=== PATIENT | female | born 1990 | race Two or more races ===

== ENCOUNTER 2024-10-26 13:38 | Emergency (ER) | payer MEDICAID, OTHER ==
[~2024-10-26] VITALS: Ht 172.7 cm; Wt 104.5 kg
[2024-10-26 14:34] VITALS: BP 193/90; PULSE 99; RESP 18; TEMP 99.6; O2SAT 99
[2024-10-26] MEDS: SODIUM CHLORIDE 0.9% 1,000 ML IV ONE (15:09)
[2024-10-26] MEDS: diphenhdrAMINE HCL 50 MG/1 ML VL IV ONE (15:16)
[2024-10-26] MEDS: KETOROLAC TROMETH 30 MG/ML 1ML VIAL IV ONE (15:16)
[2024-10-26] MEDS: PROCHLORPERAZINE EDISYLATE 5 MG/ML 2ML VIAL IV ONE (15:16)
[2024-10-26] MEDS ORDERED: MAGN400T40 PO (16:23)
[2024-10-26] MEDS ORDERED: RIBO400T OR (16:23)
--- NOTE | 2024-10-26 16:23 | ED.PDOC ---
HPI (NEURO) HPI Comments This is a pleasant 34-year-old with hx of Migraines since childhood who presents for atraumatic right temporal headache associated with nausea and photophobia x 3 days Able to get minimal relief with [id number] Tylenol Motrin The headache is currently rated moderate to severe Denies fever, chills, night sweats Denies persistent nausea Denies vomiting Denies thunderclap headache Denies photophobia, phonophobia Denies head trauma around the time headache started Denies family history of brain issues persistent headaches Denies taking any blood thinner medication Denies vision/hearing changes Denies focal loss of strength/sensation or changes in speech LMP: Current Chief Complaint: Headache Time Seen by MD: 14:12 Mode of Arrival: Ambulatory All Other Systems: Reviewed and Negative (Per HPI) Physical Exam General Appearance: No Apparent Distress, Normal HEENT: Normal ENT Inspection, Pharynx Normal, TMs Normal Neck: Full Range of Motion, Non-Tender, Normal, Normal Inspection Respiratory: Chest Non-Tender, Lungs Clear, No Accessory Muscle Use, No Respiratory Distress, Normal Breath Sounds Cardiovascular: No Edema, No JVD, No Murmur, No Gallop, Regular Rate/Rhythm Breast Exam: Deferred Gastrointestinal: No Organomegaly, Non Tender, No Pulsatile Mass, Normal Bowel Sounds, Soft Genitalia: Deferred Pelvic: Deferred Rectal: Deferred Extremities: No calf tenderness, Normal capillary refill, Normal inspection, Normal range of motion, Non-tender, No pedal edema Musculoskeletal : Apperance: Normal Neurologic: Alert, No Motor Deficits, Normal Affect, Normal Mood, No Sensory Deficits Cerebellar Function: Normal Reflexes: Normal Skin: Dry, Normal Color, Warm Lymphatic: No Adenopathy Was a procedure done? Was a procedure done?: No Differential Diagnosis (SZ) Headache: Migraine X-Ray, Labs, Meds, VS Vital Signs Date Time Temp Pulse Resp B/P (MAP) Pulse Ox O2 Delivery O2 Flow Rate FiO2 10/26/24 14:34 99.6 99 18 193/90 (124) 99 99.6 10/26/24 13:38 99.6 99 18 143/90 (107) 99 99.6 X-Ray, Labs, Meds, VS Comment The patients history and physical exam are consistent with a benign headache. Considered subarachnoid hemorrhage however this is less likely given that the patient has had a similar and worst headaches in the past, the lack of trauma, and the slow onset with intermittent symptomatology. Low suspicion of meningitis given the afebrile, well-appearing, and without meningismus on exam. Additionally no history of recent trauma prior to the patient experiencing this headache. Finally, the patient does not report any positional exacerbation with the headaches and has not had a recent spinal procedures therefore my suspicion for central causes and post procedural etiologies of headaches are less likely. Given benign exam and history, CT imaging was discussed with the patient and was deferred during this visit. While in the ED, the patient was treated with a migraine cocktail Patient was overall well-appearing and hemodynamically stable in the ED. They were able to ambulate and continued to have a nonfocal exam in the emergency department. Discussed continued symptomatic treatment at home. Recommended follow up with PCP. Return precautions to the ED discussed Counseled to start headache diary Recommended headache elimination diet Avoid prolonged periods of fasting Drink plenty of water Exercise daily, limit screen time Aim to sleep 8 to 9 hours per night, practice good hygiene ED precautions given Time of 1ST Reevaluation: 16:00 Reevaluation 1ST: Improved Patient Education/Counseling: Diagnosis, Treatment Family Education/Counseling: Diagnosis, Treatment Departure 1 Departure Time of Disposition: 16:22 Impression: Primary Impression: Migraine Qualified Codes: G43.909 - Migraine, unspecified, not intractable, without status migrainosus Disposition: 01 HOME / SELF CARE / HOMELESS Condition: Stable e-Prescriptions Riboflavin (RIBOFLAVIN) 400 Mg Tab 400 MG OR DAILY for 30 Days, #30 TAB 0 Refills Prov: LUKE BALBUENA NP 10/26/24 Magnesium Oxide (MAGNESIUM OXIDE) 400 Mg Tab 1 TAB PO DAILY for 30 Days, #30 TAB 0 Refills Prov: LUKE BALBUENA NP 10/26/24 Critical Care Note Critical Care Time?: No Stability Stability form required: No Heart Score Heart Score: Heart Score Response (Comments) Value History N/A 0 EKG N/A 0 Age N/A 0 Risk Factors N/A 0 Troponin N/A 0 Total 0 LUKE BALBUENA NP Oct 26, 2024 16:23
== END 2024-10-26 16:27 | disposition home or self-care (01) ==
LOC: ER 13:43
DX: G43.909 Migraine, unspecified, not intractable, without status migrainosus (principal)
CPT/HCPCS: 96360; 99283; J7030; J1885